=== PATIENT | male | born 1960 | race Caucasian/White ===

== ENCOUNTER 2018-01-28 10:46 | Observation (INO) ==
[2018-01-28] MEDS ORDERED: Ondansetron 4 MG/2 ML VIAL IVP ONE (10:52)
[2018-01-28] MEDS ORDERED: Pantoprazole 40 MG VIAL IVP ONE (10:52)
[2018-01-28] MEDS ORDERED: 0.9 % Sodium Chloride 1,000 ML IVC ONE (10:52)
--- NOTE | 2018-01-28 10:53 | Emergency Department Note ---
Disposition Clinical Impression: GI bleed Disposition: Admitted As Inpatient Condition: Undetermined General Adult HPI - General Time Seen by Provider: 01/28/18 10:46 - Related Data Home Medications Medication Instructions Recorded Confirmed Acetaminophen [Tylenol] 500 mg PO ONCE PRN 01/28/18 01/28/18 Alfuzosin HCl [Uroxatral] 10 mg PO DAILY 01/28/18 01/28/18 Aspirin [Lo-Dose Aspirin EC] 81 mg PO DAILY 01/28/18 01/28/18 Calcium Carbonate/Vitamin D3 1 tab PO BID 01/28/18 01/28/18 [Calcium 600-Vit D3 800 Tablet] Finasteride [Proscar] 5 mg PO DAILY 01/28/18 01/28/18 Ibuprofen [Advil] 200 mg PO DAILY PRN 01/28/18 01/28/18 Losartan Potassium [Cozaar] 50 mg PO BID 01/28/18 01/28/18 Sertraline [Zoloft] 50 mg PO DAILY 01/28/18 01/28/18 Simvastatin [Zocor] 10 mg PO DAILY 01/28/18 01/28/18 amLODIPine [Norvasc] 5 mg PO DAILY 01/28/18 01/28/18 Allergies Allergy/AdvReac Type Severity Reaction Status Date / Time lisinopril AdvReac Cough Verified 01/28/18 12:05 Past Medical History - Past Medical History Medical history: Reports: hyperlipidemia, hypertension Psychiatric history: Reports: depression - Social History Smoking Status: Never smoker Alcohol use: Reports: rarely, occasionally Drug use: Reports: none Course Vital Signs Temperature 97.8 F 01/28/18 10:48 Pulse Rate 78 01/28/18 10:48 Respiratory Rate 18 01/28/18 10:48 Blood Pressure 117/79 01/28/18 10:48 O2 Sat by Pulse Oximetry 97 01/28/18 10:48 Temperature 98.4 F 01/28/18 15:41 Pulse Rate 78 01/28/18 15:41 Respiratory Rate 16 01/28/18 15:41 Blood Pressure 118/78 01/28/18 15:41 O2 Sat by Pulse Oximetry 97 01/28/18 15:41 Oxygen Delivery Oxygen Delivery Room Air Medical Decision Making - Lab Data Result diagrams: 01/28/18 15:44 01/28/18 11:16 Lab Results 01/28/18 01/28/1801/28/18 Range/Units 11:10 11:16 11:16 WBC 8.6 (4.3-11.1) K/mcL RBC 3.47 L (4.19-5.50) M/mcL Hgb 11.2 L (12.9-16.9) g/dL Hct 32.9 L (37.5-50.1) % MCV 94.8 (83.0-100.0) fL MCH 32.3 (28.0-33.3) pg MCHC 34.0 (31.6-35.5) g/dL RDW 11.5 (11.5-14.5) % Plt Count 199 (140-400) K/mcL MPV 10.0 (9.4-12.4) fL Immature Gran % 0.7 (0-4) % Seg Neutrophils % 84.9 % Lymphocytes % 8.7 % Monocytes % 5.3 % Eosinophils % 0.2 % Basophils % 0.2 % Neutrophils # 7.3 (1.6-8.9) K/mcL Lymphocytes # 0.7 (0.6-4.6) K/mcL Monocytes # 0.5 (0.0-1.3) K/mcL Eosinophils # 0.0 (0.0-0.6) K/mcL Basophils # 0.0 (0.0-0.2) K/mcL PT 12.7 H (9.4-12.1) Seconds INR 1.1 APTT 27.0 (26.0-36.0) Seconds Sodium (136-145) mEq/L Potassium (3.5-5.1) mEq/L Chloride (98-107) mEq/L Carbon Dioxide (23-29) mEq/L BUN (6-20) mg/dL Creatinine (0.70-1.30) mg/dL Est GFR ( Amer) (> 60) Est GFR (Non-Af Amer) (> 60) BUN/Creatinine Ratio (6-26) Glucose (70-105) mg/dL Calculated Osmolality (280-300) Calcium (8.6-10.3) mg/dL Total Bilirubin (0.3-1.0) mg/dL AST (13-39) Units/L ALT (7-52) Units/L Alkaline Phosphatase (34-104) Units/L Troponin I (< 0.04) ng/mL Serum Total Protein (6.4-8.9) g/dL Albumin (3.5-5.7) g/dL Globulin (2.4-3.5) g/dL Albumin/Globulin Ratio (1.1-2.2) Lipase (11-82) Units/L Stool Occult Bld Scrn Positive A (Negative) Blood Type Antibody Screen 01/28/18 01/28/18 01/28/18 Range/Units 11:16 11:16 11:16 WBC (4.3-11.1) K/mcL RBC (4.19-5.50) M/mcL Hgb (12.9-16.9) g/dL Hct (37.5-50.1) % MCV (83.0-100.0) fL MCH (28.0-33.3) pg MCHC (31.6-35.5) g/dL RDW (11.5-14.5) % Plt Count (140-400) K/mcL MPV (9.4-12.4) fL Immature Gran % (0-4) % Seg Neutrophils % % Lymphocytes % % Monocytes % % Eosinophils % % Basophils % % Neutrophils # (1.6-8.9) K/mcL Lymphocytes # (0.6-4.6) K/mcL Monocytes # (0.0-1.3) K/mcL Eosinophils # (0.0-0.6) K/mcL Basophils # (0.0-0.2) K/mcL PT (9.4-12.1) Seconds INR APTT (26.0-36.0) Seconds Sodium 138 (136-145) mEq/L Potassium 4.0 (3.5-5.1) mEq/L Chloride 109 H (98-107) mEq/L Carbon Dioxide 23 (23-29) mEq/L BUN 52 H (6-20) mg/dL Creatinine 0.84 (0.70-1.30) mg/dL Est GFR ( Amer) > 60 (> 60) Est GFR (Non-Af Amer) > 60 (> 60) BUN/Creatinine Ratio 62 H (6-26) Glucose 118 H (70-105) mg/dL Calculated Osmolality 301 H (280-300) Calcium 7.8 L (8.6-10.3) mg/dL Total Bilirubin 1.0 (0.3-1.0) mg/dL AST 14 (13-39) Units/L ALT 15 (7-52) Units/L Alkaline Phosphatase 52 (34-104) Units/L Troponin I < 0.03 (< 0.04) ng/mL Serum Total Protein 5.3 L (6.4-8.9) g/dL Albumin 3.4 L (3.5-5.7) g/dL Globulin 1.9 L (2.4-3.5) g/dL Albumin/Globulin Ratio 1.8 (1.1-2.2) Lipase 11 (11-82) Units/L Stool Occult Bld Scrn (Negative) Blood Type O POSITIVE Antibody Screen NEGATIVE Attestation Statement - Attestation Attestation: I examined this patient and my medical decision-making was reviewed with the Resident Physician. I agree with the documented findings, disposition and treatment plan as described except to the extent set forth below. [id number] time provided Patient arrives by EMS complaining of dark stools. He appears pale. He is alert and lucid. History obtained reveals that he has been taking NSAIDs for ankle pain. Concern for upper GI bleed
--- NOTE | 2018-01-28 10:55 | Emergency Department Note ---
Disposition Clinical Impression: GI bleed Qualifiers: GI bleed type/associated pathology: melena Qualified Code(s): K92.1 - Melena Disposition: Admitted As Inpatient Condition: Undetermined Referrals: Jeanne Hoyt MD [Primary Care Provider] - Forms: ED Satisfaction Letter Time of Disposition: 12:28 GI Bleed HPI - General Chief complaint: ED GI Bleed Stated complaint: Blood in stool Time Seen by Provider: 01/28/18 10:46 Source: patient, EMS Mode of arrival: EMS Limitations: no limitations Nursing Notes Reviewed: Yes Vital Signs Reviewed: Yes - History of Present Illness HPI Narrative: 57-year-old male with history of pain around his ankle secondary to surgeries who takes chronic NSAIDs, arrives to the emergency department with complaint of one episode of tarry stools this morning and then a subsequent episode of hematemesis with coffee ground vomitus well that occurred while he was at [employer]. Patient also states that he was coughing so hard afterward that he had a syncopal episode lasted just a few seconds. She woke up. He denied any chest pain or difficulty breathing. The patient is pale upon evaluation. He is very nervous and anxious at this time. The patient states that he is different was going on. The patient has no previous history of GI bleed. He has had a colonoscopy demonstrated no acute process in the past. The patient denies any previous diagnosis of esophageal varices or liver disease. He denies any other complaints at this time. The patient is lucid and answering questions appropriately. - Related Data Home Medications Medication Instructions Recorded Confirmed Acetaminophen [Tylenol] 500 mg PO ONCE PRN 01/28/18 01/28/18 Alfuzosin HCl [Uroxatral] 10 mg PO DAILY 01/28/18 01/28/18 Aspirin [Lo-Dose Aspirin EC] 81 mg PO DAILY 01/28/18 01/28/18 Calcium Carbonate/Vitamin D3 1 tab PO BID 01/28/18 01/28/18 [Calcium 600-Vit D3 800 Tablet] Finasteride [Proscar] 5 mg PO DAILY 01/28/18 01/28/18 Ibuprofen [Advil] 200 mg PO DAILY PRN 01/28/18 01/28/18 Losartan Potassium [Cozaar] 50 mg PO BID 01/28/18 01/28/18 Sertraline [Zoloft] 50 mg PO DAILY 01/28/18 01/28/18 Simvastatin [Zocor] 10 mg PO DAILY 01/28/18 01/28/18 amLODIPine [Norvasc] 5 mg PO DAILY 01/28/18 01/28/18 Allergies Allergy/AdvReac Type Severity Reaction Status Date / Time lisinopril AdvReac Cough Verified 01/28/18 12:05 All systems ED: reviewed and negative except as stated. Constitutional: Reports: weakness. Denies: fever, chills ENT ED: Denies: dysphagia Cardiovascular: Denies: chest pain, dyspnea on exertion Respiratory: Denies: dyspnea Gastrointestinal: Reports: nausea, vomiting, diarrhea, hematemesis, melena, hematochezia. Denies: abdominal pain, constipation Genitourinary: Denies: urgency, dysuria Musculoskeletal: Denies: back pain, neck pain Integumentary: Denies: rash Neurological: Denies: headache Past Medical History - Past Medical History Attestation: Yes The following information was validated with the patient. Source: patient, old records reviewed Medical history: Reports: hyperlipidemia, hypertension Surgical history: Reports: non-contributory Psychiatric history: Reports: depression - Social History Smoking Status: Never smoker Alcohol use: Reports: rarely, occasionally Drug use: Reports: none Physical Exam - General Limitations: no limitations General appearance: alert, in no apparent distress, other (pale) - Head Head exam: atraumatic, normocephalic, normal inspection - Eye Eye exam: Present: normal appearance, PERRL, EOMI - ENT ENT exam: normal exam, normal oropharynx, mucous membranes moist - Neck Neck exam: Present: normal inspection, full ROM, trachea midline - Chest Chest inspection: Present: normal inspection, symmetric chest wall rise - Respiratory Respiratory exam: Present: normal lung sounds bilaterally - Cardiovascular Cardiovascular exam: Present: regular rate, normal rhythm, normal heart sounds - Abdominal Exam Abdominal exam: Present: soft, Non-Tender. Absent: tenderness, distention, guarding, rebound, rigidity - Extremities Exam Extremities exam: Present: normal inspection, full ROM. Absent: tenderness, pedal edema - Neurological Exam Neurological exam: Present: alert, oriented X3 - Skin Skin exam: Present: warm, dry, intact, pallor Course - Consultations Consultation #1: Per request of hospitalist, I spoke with on-call Endoscopy, Dr. Diaz. He will see the patient in consultation. No further recommendations given at this time. Time: 12:09 Vital Signs Temperature 97.8 F 01/28/18 10:48 Pulse Rate 78 01/28/18 10:48 Respiratory Rate 18 01/28/18 10:48 Blood Pressure 117/79 01/28/18 10:48 O2 Sat by Pulse Oximetry 97 01/28/18 10:48 Temperature 97.8 F 01/28/18 10:48 Pulse Rate 82 01/28/18 12:14 Respiratory Rate 18 01/28/18 10:48 Blood Pressure 118/67 01/28/18 12:14 O2 Sat by Pulse Oximetry 97 01/28/18 10:48 Oxygen Delivery Oxygen Delivery Room Air GI Bleed - MDM Narrative Medical decision making narrative: Patient's workup in the emergency department demonstrates findings consistent with melena hematochezia. Given the patient's history of syncope secondary to the episode of hematemesis, we will admit the patient to the hospital at this time. The patient's hematemesis is likely secondary to patient's chronic NSAID use. The patient will be admitted to the hospital for further IV hydration, hemoglobin monitoring and further workup to include probable repeat troponins. The patient agrees to plan of care. No further questions or concerns at this time. Accepted by the hospitalist, Dr. Dorsey. - Lab Data Lab results reviewed: Yes I reviewed the patient's lab results. Result diagrams: 01/28/18 11:16 01/28/18 11:16 Lab Results 01/28/18 01/28/18 01/28/18 Range/Units 11:10 11:16 11:16 WBC 8.6 (4.3-11.1) K/mcL RBC 3.47 L (4.19-5.50) M/mcL Hgb 11.2 L (12.9-16.9) g/dL Hct 32.9 L (37.5-50.1) % MCV 94.8 (83.0-100.0) fL MCH 32.3 (28.0-33.3) pg MCHC 34.0 (31.6-35.5) g/dL RDW 11.5 (11.5-14.5) % Plt Count 199 (140-400) K/mcL MPV 10.0 (9.4-12.4) fL Immature Gran % 0.7 (0-4) % Seg Neutrophils % 84.9 % Lymphocytes % 8.7 % Monocytes % 5.3 % Eosinophils % 0.2 % Basophils % 0.2 % Neutrophils # 7.3 (1.6-8.9) K/mcL Lymphocytes # 0.7 (0.6-4.6) K/mcL Monocytes # 0.5 (0.0-1.3) K/mcL Eosinophils # 0.0 (0.0-0.6) K/mcL Basophils # 0.0 (0.0-0.2) K/mcL PT 12.7 H (9.4-12.1) Seconds INR 1.1 APTT 27.0 (26.0-36.0) Seconds Sodium (136-145) mEq/L Potassium (3.5-5.1) mEq/L Chloride (98-107) mEq/L Carbon Dioxide (23-29) mEq/L BUN (6-20) mg/dL Creatinine (0.70-1.30) mg/dL Est GFR ( Amer) (> 60) Est GFR (Non-Af Amer) (> 60) BUN/Creatinine Ratio (6-26) Glucose (70-105) mg/dL Calculated Osmolality (280-300) Calcium (8.6-10.3) mg/dL Total Bilirubin (0.3-1.0) mg/dL AST (13-39) Units/L ALT (7-52) Units/L Alkaline Phosphatase (34-104) Units/L Troponin I (< 0.04) ng/mL Serum Total Protein (6.4-8.9) g/dL Albumin (3.5-5.7) g/dL Globulin (2.4-3.5) g/dL Albumin/Globulin Ratio (1.1-2.2) Lipase (11-82) Units/L Stool Occult Bld Scrn Positive A (Negative) Blood Type Antibody Screen 01/28/18 01/28/18 01/28/18 Range/Units 11:16 11:16 11:16 WBC (4.3-11.1) K/mcL RBC (4.19-5.50) M/mcL Hgb (12.9-16.9) g/dL Hct (37.5-50.1) % MCV (83.0-100.0) fL MCH (28.0-33.3) pg MCHC (31.6-35.5) g/dL RDW (11.5-14.5) % Plt Count (140-400) K/mcL MPV (9.4-12.4) fL Immature Gran % (0-4) % Seg Neutrophils % % Lymphocytes % % Monocytes % % Eosinophils % % Basophils % % Neutrophils # (1.6-8.9) K/mcL Lymphocytes # (0.6-4.6) K/mcL Monocytes # (0.0-1.3) K/mcL Eosinophils # (0.0-0.6) K/mcL Basophils # (0.0-0.2) K/mcL PT (9.4-12.1) Seconds INR APTT (26.0-36.0) Seconds Sodium 138 (136-145) mEq/L Potassium 4.0 (3.5-5.1) mEq/L Chloride 109 H (98-107) mEq/L Carbon Dioxide 23 (23-29) mEq/L BUN 52 H (6-20) mg/dL Creatinine 0.84 (0.70-1.30) mg/dL Est GFR ( Amer) > 60 (> 60) Est GFR (Non-Af Amer) > 60 (> 60) BUN/Creatinine Ratio 62 H (6-26) Glucose 118 H (70-105) mg/dL Calculated Osmolality 301 H (280-300) Calcium 7.8 L (8.6-10.3) mg/dL Total Bilirubin 1.0 (0.3-1.0) mg/dL AST 14 (13-39) Units/L ALT 15 (7-52) Units/L Alkaline Phosphatase 52 (34-104) Units/L Troponin I < 0.03 (< 0.04) ng/mL Serum Total Protein 5.3 L (6.4-8.9) g/dL Albumin 3.4 L (3.5-5.7) g/dL Globulin 1.9 L (2.4-3.5) g/dL Albumin/Globulin Ratio 1.8 (1.1-2.2) Lipase 11 (11-82) Units/L Stool Occult Bld Scrn (Negative) Blood Type O POSITIVE Antibody Screen NEGATIVE - Radiology Data Radiology results reviewed: Yes I reviewed the patient's radiology results. Abdomen/Pelvis CT 01/28/18 11:25 IMPRESSION: No acute abnormality in the abdomen or pelvis to explain patient's symptoms. Incidentally noted small nonobstructing stone in the mid pole of the left kidney. No hydronephrosis. D/ / 01/28/2018 11:54:16 Jose Elias Green MD / amarilis Interpreting Provider: Jose Elias Green MD - EKG Data EKG attestation: Yes I reviewed and interpreted this EKG. EKG results narrative: Heart rate 77 bpm. Normal sinus rhythm. No ST elevation or ST depression noted. EKG overall similar to EKG from 01/12/2015. No acute changes noted.
[2018-01-28 11:30] LABS: Basophils % 0.2 %; Eosinophils % 0.2 %; Hematocrit 32.9 % (37.5-50.1); Hemoglobin 11.2 g/dL (12.9-16.9); Immature Granulocytes % 0.7 % (0-4); Lymphocytes # 0.7 K/mcL (0.6-4.6); Lymphocytes % 8.7 %; Mean Corpuscular Hemoglobin 32.3 pg (28.0-33.3); Mean Corpuscular Volume 94.8 fL (83.0-100.0); Monocytes # 0.5 K/mcL (0.0-1.3); Monocytes % 5.3 %; Neutrophils # 7.3 K/mcL (1.6-8.9); Platelet Count 199 K/mcL (140-400); Red Blood Count 3.47 M/mcL (4.19-5.50); Red Cell Distribution Width 11.5 % (11.5-14.5); Segmented Neutrophils % 84.9 %
[2018-01-28 11:35] LABS: INR 1.1; Prothrombin Time 12.7 Seconds (9.4-12.1)
[2018-01-28 11:50] LABS: Alanine Aminotransferase 15 Units/L (7-52); Albumin 3.4 g/dL (3.5-5.7); Albumin/Globulin Ratio 1.8 (1.1-2.2); Alkaline Phosphatase 52 Units/L (34-104); Aspartate Amino Transferase 14 Units/L (13-39); BUN/Creatinine Ratio 62 (6-26); Blood Urea Nitrogen 52 mg/dL (6-20); Calcium 7.8 mg/dL (8.6-10.3); Carbon Dioxide 23 mEq/L (23-29); Chloride 109 mEq/L (98-107); Globulin 1.9 g/dL (2.4-3.5); Glucose 118 mg/dL (70-105); Lipase 11 Units/L (11-82); Osmolality,Calculated 301 (280-300); Sodium 138 mEq/L (136-145); Total Protein 5.3 g/dL (6.4-8.9); eGFR For Non-African Americans > 60 (> 60)
[2018-01-28] MEDS ORDERED: Naloxone 0.4 MG/ML INJ IVP PRN (12:31)
--- NOTE | 2018-01-28 13:19 | Internal Med History&Physical ---
Date of Encounter: 01/28/18 Time of Encounter: 13:10 Internal Medicine - H&P: HPI Chief complaint: Black stools Admitted From: Home Plans for Post Hospital Care: Home History of present illness: Mr. Garg is a 57 year old male with history of arthritis on ibuprofen, and hypertension presented to the emergency department after he had an episode of black stools. As per patient he woke up about 7 AM and had a bowel movement at 7:30 AM that D describes as black diarrhea denies fresh blood or maroon stools. After he had a bowel movement he did not feel like himself but decided to get ready and go to [employer]. At about 9:30 him and his family arrived at the [employer] but he felt warm so he decided to walk outside and sat on a bench. He reports that another [employer] member was walking into the [employer] and saw him sitting on a bench and reported to the patient's that he looks pale and not like himself. visited patient as he was sitting on a bench and reports that he was pale and not responding to her as he usually does. After about 2 minutes he vomited about a cup full of blood with clots so he was brought to [facility] for further evaluation. he cannot associate alleviating or aggravating factors. and patient denies syncope, loss of consciousness, chest pain, palpitations , diaphoresis, previous similar symptoms, nausea, dizziness, head trauma or abnormal movements of his extremities while he was sitting on the bench for now. Patient does report that he cannot recall all of the events that happened from him sitting on the bench to the time that he was brought to the emergency department. He does have arthritis and takes ibuprofen at least 2 pills every day. He also takes aspirin 81 mg every day. He does report that he had a colonoscopy in 2011 that did not show any abnormalities. I discussed with him about transfusion and he is agreeable with blood transfusions. CODE STATUS was discussed with the patient and he would like to remain full code. While in the ED hemoglobin was 11.2 as compared to hemoglobin on 08/2017 there was a 2 g drop. Orthostatics were performed and were negative as per the ED physician. He was given Protonix 40 mg IV. GI was consulted for above symptoms by the emergency department physician and it was recommended for him to be admitted to follow serial CBCs and to have possible endoscopy performed in the morning. 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 wisdom teeth. umbilical hernia repair - Social History Smoking Status: Never smoker Alcohol use: rarely, occasionally Drug use: none Internal Medicine - H&P: Meds Acetaminophen [Tylenol] 500 mg PO ONCE PRN 01/28/18 [History] Alfuzosin HCl [Uroxatral] 10 mg PO DAILY 01/28/18 [History] Aspirin [Lo-Dose Aspirin EC] 81 mg PO DAILY 01/28/18 [History] Calcium Carbonate/Vitamin D3 [Calcium 600-Vit D3 800 Tablet] 1 tab PO BID [History] Finasteride [Proscar] 5 mg PO DAILY 01/28/18 [History] Ibuprofen [Advil] 200 mg PO DAILY PRN 01/28/18 [History] Losartan Potassium [Cozaar] 50 mg PO BID 01/28/18 [History] Sertraline [Zoloft] 50 mg PO DAILY 01/28/18 [History] Simvastatin [Zocor] 10 mg PO DAILY 01/28/18 [History] amLODIPine [Norvasc] 5 mg PO DAILY 01/28/18 [History] 3 Allergy/AdvReac Type Severity Reaction Status Date / Time lisinopril AdvReac Cough Verified 01/28/18 12:05 All Systems PM: A 10-system review of systems was performed and is negative for pertinent findings except as documented above in the HPI. - Constitutional Vitals: Temp Pulse Resp BP Pulse Ox 97.8 F 82 18 118/67 97 01/28/18 10:48 01/28/18 12:14 01/28/18 10:48 01/28/18 12:14 01/28/18 10:48 Exam: General: Patient is alert, oriented, no acute distress, pale Head: atraumatic, normocephalic, Eye: normal appearance, PERRL, no scleral icterus, conjunctival pallor ENT: mucous membranes moist, normal external ear exam Neck: normal inspection, trachea midline, full ROM, no carotid bruits Chest: normal inspection, symmetric chest rise Respiratory: Good respiratory effort. Bilateral breath sounds are clear without wheezing, crackles, or rhonchi. Cardiovascular: Regular rate and rhythm. s1 and s2 No clicks, rubs, gallops, or murmors. Abdomen: Bowel sounds present normoactive x-4 quadrants. Abdomen is soft, nondistended. no Epigastric tenderness. No guarding or rebound. No organomegaly noted, obese, has an umbilical hernia that is easily reducible musculoskeletal: Spontaneously moving all extremities. no edema, no calf tenderness Skin: warm, dry, intact. Neuro: Alert and oriented x4. Sensation light touch intact. Cranial nerves 2- 12 is intact. Not aphasic, rapid hand movements intact, [id number] intact, Psych: Patient's affect is normal Internal Med - H&P Results - Labs CBC & Chem 7: 01/28/18 11:16 01/28/18 11:16 - EKG Data -: EKG Interpreted by Myself (sinus rhythm no acute St-t changes ) - EKG Data Prior EKG available for review: yes When compared to previous EKG: there is no significant change - Assessment and plan (1) Acute blood loss anemia Current Visit: Yes Status: Acute Assessment and plan: Acute blood loss anemia secondary to upper GI bleed ( PUD vs. esophagitis vs angiodysplasia vs gastric mass) had one episode of melena and one episode of hematemesis history Recent NSAID use FOBT positive Monitor CBC every 4 hours and transfuse below 8 Orthostatics performed in the ED were negative Protonix drip Received 3750 NS bolus in the emergency department Continue with normal saline at 125 mL per hour Type and screen Avoid NSAIDs, antiplatelets, anticoagulations Hold all blood pressure medications Vital signs as per protocol GI consulted in the emergency department for EGD (Dr. Diaz) Nothing by mouth If he develops another episode of hematemesis, hematochezia, or melena consider transfusing 1 unit of PRBC and calling GI for stat endoscopy If he has another episode of hematemesis and is unable to protect his airway consider intubation for airway protection colonoscopy performed in 2011 was negative for any acute abnormalities as per patient (2) GI bleed Current Visit: Yes Status: Acute Assessment and plan: see above Management as per above Qualifiers: Gastritis type: unspecified gastritis Qualified Code(s): K29.71 - Gastritis , unspecified, with bleeding (3) DVT prophylaxis Current Visit: Yes Status: Acute Assessment and plan: SCDs - Time Spent With Patient Total time spent is greater than 50% in coordination of care (as documented) at patient's floor/unit and/or counseling patient:
[2018-01-28] MEDS: Pantoprazole 40 MG in 0.9 % Sodium Chloride Mini Bag 100 ML IVC SCH ×2 (15:10→20:02)
[2018-01-28] MEDS: 0.9 % Sodium Chloride 1,000 ML IVC SCH ×2 (15:11→22:37)
[2018-01-28 15:54] LABS: Basophils % 0.1 %; Hematocrit 32.2 % (37.5-50.1); Hemoglobin 11.1 g/dL (12.9-16.9); Immature Granulocytes % 0.3 % (0-4); Lymphocytes # 0.6 K/mcL (0.6-4.6); Lymphocytes % 7.1 %; Mean Corpuscular HGB Conc 34.5 g/dL (31.6-35.5); Mean Corpuscular Hemoglobin 32.4 pg (28.0-33.3); Mean Corpuscular Volume 93.9 fL (83.0-100.0); Mean Platelet Volume 9.9 fL (9.4-12.4); Monocytes # 0.3 K/mcL (0.0-1.3); Monocytes % 3.9 %; Neutrophils # 7.7 K/mcL (1.6-8.9); Platelet Count 204 K/mcL (140-400); Red Blood Count 3.43 M/mcL (4.19-5.50); Red Cell Distribution Width 11.5 % (11.5-14.5); Segmented Neutrophils % 88.6 %
--- NOTE | 2018-01-28 18:26 | Internal Medicine Consult Note ---
Date of Encounter: 01/28/18 Time of Encounter: 18:24 - Assessment and Plan (1) Upper GI bleed Current Visit: Yes Status: Acute Assessment and plan: He has had slight blood loss anemia with this, differential to include esophagitis, gastritis due to nonsteroidal use, and Peptic ulcer disease. I have discussed the need for upper endoscopy in the next 24 hours risks and benefits being discussed, he has consented. His was in the room. He is receiving IV PPI therapy, (2) Hypertension Current Visit: Yes Status: Chronic Qualifiers: Qualified Code(s): I10 - Essential (primary) hypertension (3) Acid reflux Current Visit: Yes Status: Chronic Qualifiers: Qualified Code(s): K21.9 - Gastro-esophageal reflux disease without e sophagitis Internal Medicine - CN: HPI - Data of Consult Patient: new to practice Requesting Physician: Sapna Hayes MD - Consult Narrative Reason for consult: Upper GI bleed History of present illness: Mr. Garg is a 57 year old male who presented to the ED this morning, with a bout of hematemesis. I was asked to see him at the request of the ER provider and the hospitalist. He admits awakening this morning feeling well, and then subsequently had a dark stool. Went to [facility], and then had hematemesis of old material, with syncope. He admits having intermittent bouts of reflux moderately so, no abdominal pain, sweats been stable and no dysphagia. No previous upper endoscopy. He did have colonoscopy roughly 6 years ago. He does take 1 or 2 Aleve daily, along with aspirin daily. 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 wisdom teeth. umbilical hernia repair. 2x ankle surgeries - Social History Smoking Status: Never smoker Alcohol use: rarely, occasionally Drug use: none - Family History Father Hx Family Genitourinary Disorders: Yes (History of prostate cancer) - Constitutional Constitutional: fatigue, no anorexia, no chills, no fever(s), no malaise, no night sweats, no weight loss - EENT Nose, mouth and throat: no dysphagia, no epistaxis, no hoarseness, no nose pain, no odynophagia, no tongue swelling - Cardiovascular Cardiovascular ROS IM: syncope, no chest pain, no diaphoresis, no dyspnea on exertion, no edema, no irregular heart rhythm, no palpitations - Respiratory Respiratory: no dyspnea, no hemoptysis, no stridor, no pain with cough - Gastrointestinal Gastrointestinal: diarrhea, heartburn, hematemesis, melena, nausea, vomiting, no abdominal pain, no constipation, no cramping, no odynophagia - Musculoskeletal Additional comments: 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 Internal Medicine - CN: Meds Acetaminophen [Tylenol] 500 mg PO ONCE PRN 01/28/18 [History] Alfuzosin HCl [Uroxatral] 10 mg PO DAILY 01/28/18 [History] Aspirin [Lo-Dose Aspirin EC] 81 mg PO DAILY 01/28/18 [History] Calcium Carbonate/Vitamin D3 [Calcium 600-Vit D3 800 Tablet] 1 tab PO BID 01/28/18 [History] Finasteride [Proscar] 5 mg PO DAILY 01/28/18 [History] Ibuprofen [Advil] 200 mg PO DAILY PRN 01/28/18 [History] Losartan Potassium [Cozaar] 50 mg PO BID 01/28/18 [History] Sertraline [Zoloft] 50 mg PO DAILY 01/28/18 [History] Simvastatin [Zocor] 10 mg PO DAILY 01/28/18 [History] amLODIPine [Norvasc] 5 mg PO DAILY 01/28/18 [History] Allergy/AdvReac Type Severity Reaction Status Date / Time lisinopril AdvReac Cough Verified 01/28/18 12:05 Internal Med - CN: Exam - Constitutional Vitals: Temp Pulse Resp BP Pulse Ox 98.4 F 78 16 118/78 97 01/28/18 15:41 01/28/18 15:41 01/28/18 15:41 01/28/18 15:41 01/28/18 15:41 General appearance IM: Present: A&O X 3, pleasant, no acute distress, answers questions appropriately - Head Head exam: Present: atraumatic - Eye Eye exam: Present: EOMI, PERRL, sclera anicteric - ENT ENT exam: Present: mucous membranes moist - Neck Neck exam general surgery: Present: full ROM, supple, trachea midline - Respiratory Respiratory exam: Present: CTAB - Cardiovascular Cardiovascular exam IM: Present: RRR, +S1, +S2. Absent: JVD, tachycardia - GI/Abdominal GI/Abdominal exam IM: Present: normal bowel sounds, soft, no peritoneal signs. Absent: mass, rigid, splenomegaly Internal Medicine - CN: Reslt - Labs CBC & Chem 7: 01/28/18 15:44 01/28/18 11:16 Labs: Short CBC 01/28/18 Range/Units 15:44 WBC 8.7 (4.3-11.1) K/mcL Hgb 11.1 L (12.9-16.9) g/dL Hct 32.2 L (37.5-50.1) % Plt Count 204 (140-400) K/mcL Neutrophils # 7.7 (1.6-8.9) K/mcL - ABG Interpretation ABG results: PT/INR, D-dimer PT 12.7 Seconds (9.4-12.1) H 01/28/18 11:16 Consult Discharge Plan - Plan Referrals: Jeanne Hoyt MD [Primary Care Provider] -
[2018-01-28 19:48] LABS: Basophils % 0.3 %; Eosinophils % 0.3 %; Hematocrit 30.7 % (37.5-50.1); Hemoglobin 10.6 g/dL (12.9-16.9); Immature Granulocytes % 0.4 % (0-4); Lymphocytes # 0.9 K/mcL (0.6-4.6); Lymphocytes % 12.7 %; Mean Corpuscular HGB Conc 34.5 g/dL (31.6-35.5); Mean Corpuscular Hemoglobin 32.4 pg (28.0-33.3); Mean Corpuscular Volume 93.9 fL (83.0-100.0); Monocytes # 0.3 K/mcL (0.0-1.3); Monocytes % 4.9 %; Neutrophils # 5.6 K/mcL (1.6-8.9); Platelet Count 201 K/mcL (140-400); Red Blood Count 3.27 M/mcL (4.19-5.50); Red Cell Distribution Width 11.6 % (11.5-14.5); Segmented Neutrophils % 81.4 %
[2018-01-29] MEDS: Pantoprazole 40 MG in 0.9 % Sodium Chloride Mini Bag 100 ML IVC SCH ×5 (00:30→22:06)
[2018-01-29 00:36] LABS: Basophils % 0.2 %; Eosinophils # 0.1 K/mcL (0.0-0.6); Eosinophils % 1.2 %; Hematocrit 28.8 % (37.5-50.1); Hemoglobin 9.7 g/dL (12.9-16.9); Immature Granulocytes % 0.6 % (0-4); Lymphocytes # 1.1 K/mcL (0.6-4.6); Lymphocytes % 21.3 %; Mean Corpuscular HGB Conc 33.7 g/dL (31.6-35.5); Mean Platelet Volume 10.2 fL (9.4-12.4); Monocytes # 0.4 K/mcL (0.0-1.3); Monocytes % 7.5 %; Neutrophils # 3.6 K/mcL (1.6-8.9); Platelet Count 179 K/mcL (140-400); Red Blood Count 3.03 M/mcL (4.19-5.50); Red Cell Distribution Width 11.6 % (11.5-14.5); Segmented Neutrophils % 69.2 %
[2018-01-29 04:27] LABS: Prothrombin Time 11.5 Seconds (9.4-12.1)
[2018-01-29 04:29] LABS: Basophils % 0.5 %; Eosinophils # 0.1 K/mcL (0.0-0.6); Eosinophils % 1.6 %; Hematocrit 28.8 % (37.5-50.1); Hemoglobin 9.8 g/dL (12.9-16.9); Immature Granulocytes % 0.2 % (0-4); Lymphocytes % 22.8 %; Mean Corpuscular Hemoglobin 32.3 pg (28.0-33.3); Mean Platelet Volume 10.3 fL (9.4-12.4); Monocytes # 0.4 K/mcL (0.0-1.3); Monocytes % 8.5 %; Neutrophils # 2.8 K/mcL (1.6-8.9); Platelet Count 183 K/mcL (140-400); Red Blood Count 3.03 M/mcL (4.19-5.50); Red Cell Distribution Width 11.6 % (11.5-14.5); Segmented Neutrophils % 66.4 %
[2018-01-29 04:30] LABS: Activated Partial Thrombo Time 29.3 Seconds (26.0-36.0)
[2018-01-29 04:52] LABS: BUN/Creatinine Ratio 28 (6-26); Blood Urea Nitrogen 25 mg/dL (6-20); Calcium 8.1 mg/dL (8.6-10.3); Carbon Dioxide 24 mEq/L (23-29); Chloride 112 mEq/L (98-107); Glucose 93 mg/dL (70-105); Osmolality,Calculated 294 (280-300); Phosphorous 2.5 mg/dL (2.7-4.5); Potassium 3.5 mEq/L (3.5-5.1); Sodium 140 mEq/L (136-145); eGFR For Non-African Americans > 60 (> 60)
[2018-01-29 08:10] LABS: Basophils % 0.5 %; Eosinophils # 0.1 K/mcL (0.0-0.6); Eosinophils % 1.5 %; Hematocrit 29.1 % (37.5-50.1); Hemoglobin 10.1 g/dL (12.9-16.9); Immature Granulocytes % 0.5 % (0-4); Lymphocytes # 0.8 K/mcL (0.6-4.6); Lymphocytes % 19.1 %; Mean Corpuscular HGB Conc 34.7 g/dL (31.6-35.5); Mean Corpuscular Hemoglobin 32.4 pg (28.0-33.3); Mean Corpuscular Volume 93.3 fL (83.0-100.0); Mean Platelet Volume 10.4 fL (9.4-12.4); Monocytes # 0.3 K/mcL (0.0-1.3); Monocytes % 7.7 %; Neutrophils # 2.8 K/mcL (1.6-8.9); Platelet Count 181 K/mcL (140-400); Red Blood Count 3.12 M/mcL (4.19-5.50); Red Cell Distribution Width 11.9 % (11.5-14.5); Segmented Neutrophils % 70.7 %
[2018-01-29] MEDS ORDERED: *HR* Midazolam HCl 5 MG/5 ML VIAL IVP ONE ×2 (09:43→09:53)
[2018-01-29] MEDS ORDERED: *HR* FentaNYL (PF) 100 MCG/2 ML VIAL ONE (09:43)
[2018-01-29] MEDS ORDERED: Tetracaine/Benzocaine/Butamben 1 SPRAY AEROSOL MM ONE (09:53)
[2018-01-29] MEDS ORDERED: *HR* FentaNYL (PF) 100 MCG/2 ML VIAL IVP ONE (09:53)
[2018-01-29] MEDS ORDERED: Simethicone 40 MG/0.6 ML MLS IR ONE (09:53)
--- NOTE | 2018-01-29 09:54 | Pre-Sedation Evaluation ---
Pre-sedation evaluation - Pre-sedation checklist Date of procedure: 01/29/18 Procedure: EGD Recent Vitals: Last Vital Signs Temp 98.0 F 01/29/18 06:32 Pulse 71 01/29/18 06:32 Resp 16 01/29/18 06:32 BP 135/86 01/29/18 06:32 Pulse Ox 98 01/29/18 06:32 H&P (including ROS) documented in medical record: Yes Previous reaction to sedatives/anesthetics: No Dietary Status: NPO after Midnight Airway Assessment: Patient can open mouth completely, TMJ function normal Dentition: No loose teeth or bridges Possible difficult airway: No ASA Classification *see protocol: CLASS II-Mild systemic disease Cardiac Registry (Cardio Only) - Functional Capacity - Clincal Frailty Scale
--- NOTE | 2018-01-29 10:17 | Event Note ---
Date of Encounter: 01/29/18 Time of Encounter: 10:15 EGD Findings 1. Mid Body esoph. ulcers with bleeding.. 2. Small Hiatal Hernia Provided Hemospray with good results. Would keep in PPI therapy today.. can DC tomorrow if doing well. No Further ASA or NSAIDS
--- NOTE | 2018-01-29 10:18 | Internal Med Progress Note ---
Date of Encounter: 01/29/18 Time of Encounter: 10:17 - Assessment and plan (1) Esophageal ulcer with bleeding Current Visit: Yes Status: Acute (2) Hypertension Current Visit: Yes Status: Chronic Qualifiers: Qualified Code(s): I10 - Essential (primary) hypertension (3) Acid reflux Current Visit: Yes Status: Chronic Qualifiers: Qualified Code(s): K21.9 - Gastro-esophageal reflux disease without esophagitis - Constitutional Vitals: Temp Pulse Resp BP Pulse Ox 98.0 F 67 18 133/74 99 01/29/18 09:50 01/29/18 10:00 01/29/18 10:00 01/29/18 10:00 01/29/18 10:00 General appearance: Present: A&O X 3, pleasant, no acute distress, answers questions appropriately Internal Medicine: Result - Labs CBC & Chem 7: 01/29/18 07:31 01/29/18 03:49 Labs: Short CBC 01/28/18 01/28/18 01/29/18 Range/Units 15:44 19:37 00:06 WBC 8.7 6.9 5.2 (4.3-11.1) K/mcL Hgb 11.1 L 10.6 L 9.7 L (12.9-16.9) g/dL Hct 32.2 L 30.7 L 28.8 L (37.5-50.1) % Plt Count 204 201 179 (140-400) K/mcL Neutrophils # 7.7 5.6 3.6 (1.6-8.9) K/mcL 01/29/18 01/29/18 Range/Units 03:49 07:31 WBC 4.3 3.9 L (4.3-11.1) K/mcL Hgb 9.8 L 10.1 L (12.9-16.9) g/dL Hct 28.8 L 29.1 L (37.5-50.1) % Plt Count 183 181 (140-400) K/mcL Neutrophils # 2.8 2.8 (1.6-8.9) K/mcL BMP 01/29/18 03:49 Sodium 140 Potassium 3.5 Chloride 112 H Carbon Dioxide 24 BUN 25 H Creatinine 0.90 Glucose 93 Calcium 8.1 L - ABG Interpretation ABG results: PT/INR, D-dimer PT 11.5 Seconds (9.4-12.1) 01/29/18 03:49 Consult Discharge Plan - Plan Referrals: Jeanne Hoyt MD [Primary Care Provider] -
--- NOTE | 2018-01-29 10:59 | Internal Med Progress Note ---
Hospitalist Progress Note - Encounter Date of Encounter: 01/29/18 Time of Encounter: 10:55 - Subjective Interval History: Pt denies fever or chills. He denies N/V or diarrhea. Reports positive dark stools this morning which is expected as he is just s/p EGD this am. 2017. He denies abdominal pain. - Exam Vitals: Temp Pulse Resp BP Pulse Ox 97.7 F 71 17 124/82 99 01/29/18 10:27 01/29/18 10:27 01/29/18 10:27 01/29/18 10:27 01/29/18 10:27 Exam: General: Patient is alert, oriented, no acute distress, pale Head: atraumatic, normocephalic, Eye: normal appearance, PERRL, no scleral icterus, conjunctival pallor ENT: mucous membranes moist, normal external ear exam Neck: normal inspection, trachea midline, full ROM, no carotid bruits Chest: normal inspection, symmetric chest rise Respiratory: Good respiratory effort. Bilateral breath sounds are clear without wheezing, crackles, or rhonchi. Cardiovascular: Regular rate and rhythm. s1 and s2 No clicks, rubs, gallops, or murmors. Abdomen: Bowel sounds present normoactive x-4 quadrants. Abdomen is soft, nondistended. no Epigastric tenderness. No guarding or rebound. No organomegaly noted, obese, has an umbilical hernia that is easily reducible musculoskeletal: Spontaneously moving all extremities. no edema, no calf tenderness Skin: warm, dry, intact. Neuro: Alert and oriented x4. Sensation light touch intact. Cranial nerves 2- 12 is intact. Not aphasic, rapid hand movements intact, [id number] intact, Psych: Patient's affect is normal - Assessment and Plan (1) Esophageal ulcer with bleeding Current Visit: Yes Status: Acute Assessment and Plan: Pt presented with melena and anemia. He was evaluated by GI for positive stool occult. He is s/p EGD with hemospray to esophageal ulcer bleed, with good results per Dr. Diaz. Dr. Diaz request monitor overnight and continue on protonix gtt for now. Will DC on protonix PO BID and Dr. Diaz recommends DC ASA and NSAIDs Advance diet slowly as tolerated. (2) Acid reflux Current Visit: Yes Status: Chronic Assessment and Plan: PPI PO BID at discharge recommended by GI (3) Hypertension Current Visit: Yes Status: Chronic Assessment and Plan: May resume norvasc and losartan when able to tolerate PO meds. DVT Prophylaxis: SCD - Summary of Assessment and Plan Summary of Assessment and Plan: Mr. Garg is a 57 year old male with history of arthritis on ibuprofen, and hypertension presented to the emergency department after he had an episode of black stools. While in the ED hemoglobin was 11.2 as compared to hemoglobin on 08/2017 there was a 2 g drop. Orthostatics were performed and were negative as per the ED physician. He was given Protonix 40 mg IV. Stool occult +. - Time Spent with Patient Total time spent is greater than 50% in coordination of care (as documented) at patient's floor/unit and/or counseling patient: less than 15 minutes Plan of Care Discussed with: patient Internal Medicine: Result - Labs CBC & Chem 7: 01/29/18 07:31 01/29/18 03:49 Labs: Short CBC 01/28/18 01/28/18 01/29/18 Range/Units 15:44 19:37 00:06 WBC 8.7 6.9 5.2 (4.3-11.1) K/mcL Hgb 11.1 L 10.6 L 9.7 L (12.9-16.9) g/dL Hct 32.2 L 30.7 L 28.8 L (37.5-50.1) % Plt Count 204 201 179 (140-400) K/mcL Neutrophils # 7.7 5.6 3.6 (1.6-8.9) K/mcL 01/29/18 01/29/18 Range/Units 03:49 07:31 WBC 4.3 3.9 L (4.3-11.1) K/mcL Hgb 9.8 L 10.1 L (12.9-16.9) g/dL Hct 28.8 L 29.1 L (37.5-50.1) % Plt Count 183 181 (140-400) K/mcL Neutrophils # 2.8 2.8 (1.6-8.9) K/mcL BMP 01/29/18 03:49 Sodium 140 Potassium 3.5 Chloride 112 H Carbon Dioxide 24 BUN 25 H Creatinine 0.90 Glucose 93 Calcium 8.1 L - ABG Interpretation ABG results: PT/INR, D-dimer PT 11.5 Seconds (9.4-12.1) 01/29/18 03:49 Consult Discharge Plan - Plan Referrals: Jeanne Hoyt MD [Primary Care Provider] - (2) Acid reflux Qualifiers: Qualified Code(s): K21.9 - Gastro-esophageal reflux disease without esophagitis (3) Hypertension Qualifiers: Qualified Code(s): I10 - Essential (primary) hypertension
--- NOTE | 2018-01-29 11:16 | Electrocardiograph Report ---
[place] [id number] Test Date: 2018-01-28 Pat Name: Dave Garg Department: EXAM2 Room: 3A37 Gender: M Occupational Health Nurse: : 1960 Requested By: Freddie Silverman Order Number: [id number] Reading MD: Bhumika Velázquez Measurements Intervals Sisters Rate: 77 P: 67 MO: 173 QRS: 73 QRSD: 91 T: 28 QT: 387 QTc: 438 Interpretive Statements Sinus rhythm Electronically Signed On 01-29-2018 11:14:37 EDT by Bhumika Velázquez
[2018-01-29 12:27] LABS: Basophils % 0.5 %; Eosinophils % 1.1 %; Hemoglobin 9.6 g/dL (12.9-16.9); Immature Granulocytes % 0.5 % (0-4); Lymphocytes # 0.8 K/mcL (0.6-4.6); Lymphocytes % 20.3 %; Mean Corpuscular HGB Conc 34.3 g/dL (31.6-35.5); Mean Corpuscular Hemoglobin 32.3 pg (28.0-33.3); Mean Corpuscular Volume 94.3 fL (83.0-100.0); Mean Platelet Volume 10.2 fL (9.4-12.4); Monocytes # 0.3 K/mcL (0.0-1.3); Monocytes % 8.3 %; Neutrophils # 2.6 K/mcL (1.6-8.9); Platelet Count 189 K/mcL (140-400); Red Blood Count 2.97 M/mcL (4.19-5.50); Red Cell Distribution Width 11.9 % (11.5-14.5); Segmented Neutrophils % 69.3 %
[2018-01-30] MEDS: Pantoprazole 40 MG in 0.9 % Sodium Chloride Mini Bag 100 ML IVC SCH ×2 (03:08→07:58)
[2018-01-30] MEDS ORDERED: Finasteride 5 MG TABLET PO SCH (09:00)
[2018-01-30] MEDS ORDERED: amLODIPine 5 MG TABLET PO SCH (09:00)
[2018-01-30 10:25] VITALS: BP 115/76
[2018-01-30 12:31] LABS: Basophils % 0.4 %; Eosinophils # 0.1 K/mcL (0.0-0.6); Eosinophils % 1.1 %; Hemoglobin 10.6 g/dL (12.9-16.9); Immature Granulocytes % 0.4 % (0-4); Lymphocytes # 0.8 K/mcL (0.6-4.6); Lymphocytes % 17.5 %; Mean Corpuscular HGB Conc 34.2 g/dL (31.6-35.5); Mean Corpuscular Hemoglobin 32.2 pg (28.0-33.3); Mean Corpuscular Volume 94.2 fL (83.0-100.0); Mean Platelet Volume 10.2 fL (9.4-12.4); Monocytes # 0.3 K/mcL (0.0-1.3); Neutrophils # 3.3 K/mcL (1.6-8.9); Platelet Count 217 K/mcL (140-400); Red Blood Count 3.29 M/mcL (4.19-5.50); Red Cell Distribution Width 11.6 % (11.5-14.5); Segmented Neutrophils % 73.6 %
--- NOTE | 2018-01-30 12:48 | Discharge Summary ---
- NOTES TO OUTPATIENT PROVIDER Notes to Outpatient Provider: PCP in 5 to 7 days. Date of Encounter: 01/30/18 Time of Encounter: 12:46 - Discharge Diagnosis (1) Esophageal ulcer with bleeding Priority: Primary Status: Acute Assessment and Plan: Pt presented with melena and anemia. He was evaluated by GI for positive stool occult. He is s/p EGD with hemospray to esophageal ulcer bleed, with good results per Dr. Diaz. Follow up with Dr. Diaz out pt. Will DC on protonix PO BID and Dr. Diaz recommends DC ASA and NSAIDs Advanced diet slowly and tolerated. (2) Acid reflux Priority: Secondary Status: Chronic Assessment and Plan: PPI PO BID at discharge recommended by GI. Qualifiers: Qualified Code(s): K21.9 - Gastro-esophageal reflux disease without esophagitis (3) Hypertension Priority: Secondary Status: Chronic Assessment and Plan: May resume norvasc and losartan when able to tolerate PO meds. Qualifiers: Qualified Code(s): I10 - Essential (primary) hypertension Hospital course: Mr. Garg is a 57 year old male with history of arthritis on ibuprofen, and hypertension presented to the emergency department after he had an episode of black stools. While in the ED hemoglobin was 11.2 as compared to hemoglobin on 08/2017 there was a 2 g drop. Orthostatics were performed and were negative as per the ED physician. He was given Protonix 40 mg IV. Stool occult +. See assessment and plan for hospital course. Discharge discussed with: patient - Time Spent with Patient Total time spent providing and/or coordinating discharge services: Greater than 30 minutes - Discharge Medications Home Medications: Acetaminophen [Tylenol] 500 mg PO ONCE PRN 01/28/18 [History] Alfuzosin HCl [Uroxatral] 10 mg PO DAILY 01/28/18 [History] Aspirin [Lo-Dose Aspirin EC] 81 mg PO DAILY 01/28/18 [History] Calcium Carbonate/Vitamin D3 [Calcium 600-Vit D3 800 Tablet] 1 tab PO BID [History] Finasteride [Proscar] 5 mg PO DAILY 01/28/18 [History] Ibuprofen [Advil] 200 mg PO DAILY PRN 01/28/18 [History] Losartan Potassium [Cozaar] 50 mg PO BID 01/28/18 [History] Sertraline [Zoloft] 50 mg PO DAILY 01/28/18 [History] Simvastatin [Zocor] 10 mg PO DAILY 01/28/18 [History] amLODIPine [Norvasc] 5 mg PO DAILY 01/28/18 [History] Allergies/Adverse Reactions: 3 Allergy/AdvReac Type Severity Reaction Status Date / Time lisinopril AdvReac Cough Verified 01/28/18 12:05 Date of admission: 01/28/18 12:39 Primary care physician: Jeanne Hoyt MD Discharging clinician: Bailey Vasquez Anticipated date of discharge: 01/30/18 - Constitutional Vitals: Temp Pulse Resp BP Pulse Ox 97.9 F 77 16 115/76 95 01/30/18 10:21 01/30/18 10:21 01/30/18 10:21 01/30/18 10:21 01/30/18 10:21 General appearance: Present: A&O X 3, pleasant, no acute distress, answers questions appropriately Exam: General: Patient is alert, oriented, no acute distress, pale Head: atraumatic, normocephalic, Eye: normal appearance, PERRL, no scleral icterus, conjunctival pallor ENT: mucous membranes moist, normal external ear exam Neck: normal inspection, trachea midline, full ROM, no carotid bruits Chest: normal inspection, symmetric chest rise Respiratory: Good respiratory effort. Bilateral breath sounds are clear without wheezing, crackles, or rhonchi. Cardiovascular: Regular rate and rhythm. s1 and s2 No clicks, rubs, gallops, or murmors. Abdomen: Bowel sounds present normoactive x-4 quadrants. Abdomen is soft, nondistended. no Epigastric tenderness. No guarding or rebound. No organomegaly noted, obese, has an umbilical hernia that is easily reducible musculoskeletal: Spontaneously moving all extremities. no edema, no calf tenderness Skin: warm, dry, intact. Neuro: Alert and oriented x4. Sensation light touch intact. Cranial nerves 2- 12 is intact. Not aphasic, rapid hand movements intact, [id number] intact, Psych: Patient's affect is normal - Patient Status Disposition: Home, Self-Care Condition: Good Overall status at discharge: patient is back to baseline - Discharge Instructions Follow Up With: Jeanne Hoyt MD [Primary Care Provider] - - Diet and Activity Activity: increase activity as tolerated Diet: advance to your usual diet
== END 2018-01-30 13:59 | disposition home or self-care (01) ==
LOC: EMEROOARM 10:46 → 3ANU 10:46
PROVIDERS: ADMIT Internal Medicine; ATTEND Internal Medicine
PROC: ENDOEBX (2018-01-29 15:30)